=== PATIENT | male | born 1950 | race Caucasian/White ===

== ENCOUNTER 2017-01-23 05:42 | Day surgery (SDC) | payer OTHER ==
--- NOTE | 2017-01-18 16:49 | HP ---
DATE: 01/23/17 ADMISSION DIAGNOSIS: 1. PATIENT FEELS A FULLNESS AND STUCK SENSATION SUBSTERNAL WHEN SWALLOWING. ANTICIPATED PROCEDURE: 1. EGD, possible dilatation. PAST MEDICAL HISTORY: ALLERGIES: NONE. CURRENT MEDICATIONS: None. SURGERIES: None. SOCIAL HISTORY: Negative. FAMILY HISTORY: Negative. REVIEW OF SYSTEMS: Negative. PHYSICAL EXAMINATION: Vital signs normal. CHEST: Clear. COR: Regular. IMPRESSION: 1. STICKING SENSATION WHILE SWALLOWING. PLAN: EGD, possible dilatation.
[2017-01-23] MEDS ORDERED: Sodium Chloride 0.9% 1000 ML 1,000 ML IV SCH (06:15)
[2017-01-23] MEDS ORDERED: VERSED 5 MG/5 ML IV ONE (08:00)
[2017-01-23] MEDS ORDERED: DEMEROL 50 MG IJ ONE ×2 (08:00)
[2017-01-23 10:08] VITALS: O2SAT 92
[2017-01-23 10:13] VITALS: BP 156/95; PULSE 65
--- NOTE | 2017-01-23 12:20 | OP ---
SURGERY DATE/TIME: 01/23/2017 0840 PREOPERATIVE DIAGNOSIS: Dysphagia. POSTOPERATIVE DIAGNOSIS: Esophageal stricture. PROCEDURE: EGD with balloon dilatation from size 20 to size 50. SURGEON: Sb Burnett M.D. ANESTHESIA: IV sedation. COMPLICATIONS: None. CONDITION: Stable. INDICATION: A patient requiring evaluation for dysphagia. DESCRIPTION OF PROCEDURE: The patient is taken to the endoscopy suite. Left lateral decubitus position. After suitable sedation obtained the scope was introduced. The gastroesophageal junction was just the size of the scope. It was size 20 stricture. Fundus, body, antrum, pylorus, duodenal bulb, second portion of the duodenum satisfactory. The scope looped upon itself. Gastroesophageal junction satisfactory. Colonoscope withdrawn. There was a fairly tight stricture size 20. Balloon was placed. Balloon was insufflated. Maximally insufflated under direct visualization and this was totally lysed. It was a size 50 at this time. The scope was re-introduced and it appeared satisfactory. The patient the procedure under IV sedation.
[2017-01-23] MEDS ORDERED: Lactated Ringers 1,000 ML IV ONE (14:07)
== END 2017-01-23 09:55 | disposition home or self-care (01) ==
LOC: SDC 05:42
PROVIDERS: ATTEND Surgery
PROC: 0D758ZZ Dilation of Esophagus, Via Natural or Artificial Opening Endoscopic (ICD-10-PCS; principal; 2017-01-23)
DX: K22.2 Esophageal obstruction (principal); R13.10 Dysphagia, unspecified
CPT/HCPCS: C1726; J2175; J2250

== ENCOUNTER 2019-12-17 06:23 | Day surgery (SDC) | payer MEDICARE ==
[2019-12-17] MEDS ORDERED: Lactated Ringers 1,000 ML IV SCH (06:30)
[2019-12-17] MEDS ORDERED: DIPRIVAN 200 MG/20 ML IV ONE ×2 (08:01→08:20)
[2019-12-17] MEDS ORDERED: Lactated Ringers 1,000 ML IV ONE (08:28)
[2019-12-17 08:48] VITALS: O2SAT 97
[2019-12-17 09:15] VITALS: BP 130/68; PULSE 72
--- NOTE | 2019-12-17 09:20 | OP ---
SURGERY DATE/TIME: 12/17/2019 0800 PREOPERATIVE DIAGNOSIS: Screening exam. POSTOPERATIVE DIAGNOSIS: Sigmoid colon polyp and early sigmoid diverticulosis. PROCEDURE: Colonoscopy with hot snare polypectomy. SURGEON: Dr. Duffy. ANESTHESIA: MAC. Medications given by anesthesia department. HISTORY: The patient is a 69 year-old white male presenting now for screening colonoscopy. He was apprised of the risks of the procedure including the risk of perforation, phlebitis, untoward reaction to medication, bleeding and missed lesions. The patient verbalized his understanding and desired to have the procedure performed. DESCRIPTION OF PROCEDURE: The patient was given the medications by the anesthesia department. He had continuous pulse oximetry, ECG monitoring, intermittent blood pressure monitoring and tidal CO2 monitoring during the examination. He was placed in the left lateral decubitus position. A digital rectal examination was performed and revealed normal anal sphincter tone, no masses and normal prostate. The flexible Olympus pediatric colonoscope was used to intubate the rectum. A view of the colon was developed sequentially to the cecum. Upon insertion and withdrawal was noted approximately 1.5 cm polyp in the distal sigmoid colon this was removed using hot polypectomy snare and retrieved for pathologic evaluation. There was also noted to be scattered sigmoid diverticula otherwise no other mucosal lesions being encountered, the scope was removed from the patient who tolerated the procedure well and was sent back to OP recovery in good condition. The prep was noted to be fair to good.
== END 2019-12-17 09:15 | disposition home or self-care (01) ==
LOC: SDC 06:23
PROVIDERS: ATTEND Family Medicine
DX: Z12.11 Encounter for screening for malignant neoplasm of colon (principal); D12.5 Benign neoplasm of sigmoid colon; K57.30 Diverticulosis of large intestine without perforation or abscess without bleeding
CPT/HCPCS: 88305; J2704